=== PATIENT | female | born 1950 | race African-American/Black ===

== ENCOUNTER 2025-02-25 21:54 | Emergency (ER) | payer OTHER ==
[~2025-02-25] VITALS: Ht 165.1 cm; Wt 65.0 kg
[2025-02-25 22:00] VITALS: O2SAT 100
[2025-02-25 23:08] LABS: BASOPHILS % 0.3 % (0.0-2.0); EOSINOPHILS % 1.6 % (0.0-5.0); HEMATOCRIT. 24.3 % (36.0-48.0); LYMPHOCYTES % 25.4 % (20.0-50.0); MEAN CORPUSCULAR HEMOGLOBIN 29.6 pg (28.0-32.0); MEAN CORPUSCULAR HGB CONC 32.9 g/dL (31.0-37.0); MEAN CORPUSCULAR VOLUME 89.8 fL (81.0-99.0); MEAN PLATELET VOLUME 9.3 fl (7.4-10.4); NEUTROPHILS % 64.7 % (40.0-76.0); PLATELET 136 x1000/uL (130-400); RED BLOOD CELL COUNT 2.71 mill/uL (4.2-5.4); RED CELL DISTRIBUTION WIDTH 15.2 % (11.6-14.6); WHITE BLOOD COUNT 3.8 x1000/uL (4.5-11.0)
[2025-02-25 23:12] LABS: CHLORIDE 109 mEq/L (98-107); POTASSIUM 4.6 mEq/L (3.5-5.1); SODIUM 140 mEq/L (136-145)
[2025-02-25 23:13] LABS: CALCIUM 8.3 mg/dL (8.7-10.4); CARBON DIOXIDE 25 mEq/L (21-32)
[2025-02-25 23:16] LABS: PARTIAL THROMBOPLASTIN TIME 35.7 sec (23.4-31.0); PROTHROMBIN TIME 11.2 sec (9.6-11.0)
[2025-02-25 23:18] LABS: CREATININE 1.7 mg/dL (0.6-1.0); GLUCOSE 107 mg/dL (70-105); UREA NITROGEN BLOOD 28 mg/dL (9-23)
[2025-02-25 23:19] LABS: AMMONIA < 17 uMol/L (<32); ETHANOL BLOOD < 10 mg/dL (<10); TROPONIN I HIGH SENSITIVITY 9 ng/L (3.0-34)
[2025-02-25 23:23] LABS: THYROID STIMULATING HORMONE 2.25 uIU/mL (0.55-4.78)
[2025-02-26] MEDS: SODIUM CHLORIDE 0.9% 500 ML IV ONE (01:20)
[2025-02-26] MEDS ORDERED: NA PHOS,M-B/NA PHOS,DI-BA ENEMA 118ML PR PRN (03:45)
[2025-02-26] MEDS ORDERED: MAGNESIUM/ALUMINUM HYDROXIDE/SIMETHICONE 30ML UDC PO PRN (03:45)
[2025-02-26] MEDS ORDERED: DIPHENHYDRAMINE 50MG/ML VIAL IV PRN (03:45)
[2025-02-26] MEDS ORDERED: CLONIDINE 0.1MG TABLET PO PRN (03:45)
[2025-02-26] MEDS ORDERED: GUAIFENESIN 200MG/10ML SUGAR FREE UDC PO PRN (03:45)
[2025-02-26] MEDS ORDERED: ACETAMINOPHEN 325MG TABLET PO PRN (03:45)
[2025-02-26] MEDS ORDERED: IPRATROPIUM/ALBUTEROL 0.5-3(2.5)MG/3ML NEB NEB PRN (03:45)
[2025-02-26] MEDS ORDERED: DOCUSATE SODIUM 100MG CAPSULE PO PRN (03:45)
[2025-02-26] MEDS ORDERED: ONDANSETRON HCL 4MG/2ML INJ IV PRN (03:45)
[2025-02-26] MEDS ORDERED: SODIUM CHLORIDE 0.45% 1,000 ML IV SCH (03:45)
[2025-02-26 04:33] VITALS: BP 130/58; PULSE 87; RESP 11; TEMP 36.8; O2SAT 99
[2025-02-26] MEDS ORDERED: ASPIRIN 81MG EC TABLET PO SCH (09:00)
== END 2025-02-26 04:54 | disposition short-term general hospital (02) ==
LOC: ER 21:54 → EDBEDREQ 22:25 → ER 02-26 04:54
DX: R53.1 Weakness (principal); I10 Essential (primary) hypertension; R07.9 Chest pain, unspecified; R79.89 Other specified abnormal findings of blood chemistry; Z79.82 Long term (current) use of aspirin
CPT/HCPCS: 80048; 80320; 82140; 83880; 84443; 85025; 85610; 85730; 84484; 36415; 71045; 70450; 93005; 99285; 96360; Z7610 ×3; J7040; A4606; G0480